=== PATIENT | male | born 2000 | race Caucasian/White ===

== ENCOUNTER 2024-07-10 20:02 | Emergency (ER) | payer BC, SELFPAY ==
[2024-07-10 20:06] VITALS: BP 118/74
[2024-07-10 20:58] VITALS: BMI 22.2
[2024-07-10 21:04] VITALS: BP 123/53
--- NOTE | 2024-07-10 21:37 | ED.GENMED ---
History of Present Illness
General
Chief Complaint: Breathing Problem
Source: patient and family
Exam Limitations: none
Time Seen by Provider: 07/10/24 20:59
Nursing documentation reviewed up to this point in time: agreed with
History of Present Illness
History of Present Illness:
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
breath and cough, does have a history of asthma and seasonal allergies, went to an urgent care had a chest x-ray which she tells me was unremarkable and an EKG referred here for evaluation here he is in no acute distress completing full sentences,
he has no fever no hemoptysis,
Past History
Past History
ED Past Medical History: Asthma and Other (Seasonal allergies)
Social History
Tobacco: Non-smoker
Alcohol: None
Drug: Marijuana
Personal: Single
Living: with family
Employment: Employed
Review of Systems
Review of Systems
All Other Systems: Not applicable
Constitutional: Denies fever or fatigue
Musculoskeletal: Reports no symptoms; Denies joint swelling or edema
Skin: Reports no symptoms
Neurological: Reports no symptoms
Endocrine: Reports no symptoms
Hematologic/Lymphatic: Reports no symptoms
Phy Exam
Physical Exam
Physical Exam:
Physical Exam
General: no apparent distress, not acutely ill
Neck: Without jaundice
Heart: s1/s2 regular rate and rhythm, no murmur. equal radial pulses.
Lungs: Slowly diminished bilaterally good air movement
Abdomen: Nontender
Neuro: alert and oriented. no focal neurological deficits
Skin: no rash
Psychiatric: well kept. interactive and cooperative
Extremities: no edema. no calf tenderness.
Course
Orders/Labs/Results
Orders:
Orders
07/10/24 20:03
EKG [Electrocardiogram (*1)] Urgent
Reason for Study: Shortness of Breath
EKG- Treatment ONCE
07/10/24 21:23
Ipratropium/Albuterol Sulfate [Duoneb] 3 ml INH R NOW STA
Vital Signs
Initial and Last Documented VS:
Initial Vital Signs
Temp Pulse Resp BP Pulse Ox
98.1 F 64 20 118/74 100
07/10/24 20:06 07/10/24 20:06 07/10/24 20:06 07/10/24 20:06 07/10/24 20:06
Last Documented Vital Signs
Temp Pulse Resp BP Pulse Ox
98.1 F 84 18 118/60 97
07/10/24 20:06 07/10/24 22:30 07/10/24 22:30 07/10/24 22:30 07/10/24 22:30
MDM/Problems Addressed
Differential Diagnosis Includes:
Seasonal allergies inhalation bronchospasm doubt pneumonia doubt pneumothorax doubt primary cardiac event
MDM/Problems Addressed:
Shortness of breath
Chronic conditions affecting care: Asthma
Acute Exacerbation and/or Progression of Chronic Illness: Asthma
*EKG
Interpreted by ED Provider?: Yes
Interpretation: abnormal
Comparison EKG: no comparison EKG present
Heart Rate: 48
Rate: bradycardiac
Rhythm: sinus
[place]: normal axis
Ischemia: non-specific ST changes
*Critical Care Note
Total Time (30-74mins, 75-104mins- exclusive of procedures): Not Applicable
Data Reviewed
Review of Other/Old Records Reveals: Radiology Studies (Attempting to visualize chest x-ray from earlier today)
Source: patient and family
Update Note
Update Note:
Update, suspect some transient bronchospasm after inhalation, will review his chest x-ray from earlier today, try beta agonist, provided reassurance,
EKG noted of uncertain significance though I doubt this is a primary arrhythmia or primary cardiac event
Chest x-ray noted, no pneumo, looks well discharged with albuterol
ED Attending Note
-
Portions of this chart may have been created with voice recognition software.� Occasional wrong word or��sound alike� substitutions may have occurred due to the inherent limitations of voice recognition software.
Discharge Plan
Departure
Patient Disposition: Home (Routine Discharge)
Date of Disposition: 07/10/24
Time of Disposition: 22:47
Patient with high blood pressure during this ER visit?: No
Condition: Good
Discharge Problem:
Breath shortness
Instructions: Shortness of Breath (Dyspnea) (DC)
Prescriptions:
New
albuterol sulfate [Ventolin HFA] 90 mcg/actuation HFA aerosol inhaler
2 puff inhalation Q6H PRN (Reason: shortness of breath or wheezing) Qty: 8.5 0RF
No Action
Sherine
1 tab PO DAILY PRN (Reason: allergy)
albuterol sulfate [Albuterol Sulfate HFA] 18 GM HFA aerosol inhaler
2 puff inhalation QIDPRN PRN (Reason: cough/wheeze) Qty: 1 0RF
Rx Instructions:
Please dispense with spacer and instructed in its use.
prednisone 20 MG tablet
40 mg PO DAILY Qty: 6 0RF
Referrals:
NONE,* [Family Provider] -
Interventions
Interventions:
*Risk Screen - Suicide Last Done: 07/10/24 20:06
*General Assessment Last Done: 07/10/24 20:06
*Neglect/Abuse Screening Last Done: 07/10/24 20:06
*ED COVID-19 Vaccine History Last Done: 07/10/24 20:59
ED- Cardiac Assessment Last Done: 07/10/24 20:59
ED- Pulmonary Assessment Last Done: 07/10/24 20:59
Discharge Date and Time
Print Language: TAJIK
[2024-07-10] MEDS: DUONEB 3 ML INH (21:59)
[2024-07-10 22:30] VITALS: BP 118/60
== END 2024-07-10 22:55 | disposition home or self-care (01) ==
LOC: EMR 20:02
PROVIDERS: EMERGENCY PHYSICIAN Emergency Medicine
DX: T40.711A Poisoning by cannabis, accidental (unintentional), initial encounter (principal); R06.02 Shortness of breath; J45.909 Unspecified asthma, uncomplicated
CPT/HCPCS: 94640; 99283; 93005